=== PATIENT | female | born 1990 | race Caucasian/White ===

== ENCOUNTER 2018-03-19 19:32 | Emergency (ER) | payer OTHER ==
[~2018-03-19] VITALS: Ht 165.1 cm; Wt 63.0 kg
[2018-03-19 19:56] VITALS: BP 137/63; PULSE 77; RESP 16; TEMP 98.1; O2SAT 100
[2018-03-19 20:43] VITALS: BP 129/74; PULSE 74; RESP 18; O2SAT 100
[2018-03-19] MEDS ORDERED: SODIUM CHLORIDE 0.9% FLUSH 10 ML FLUSH IV FLUSH PRN (20:45)
--- NOTE | 2018-03-19 20:49 | PD ---
HPI Chief Complaint: Abdominal Pain Time Seen by Provider: 20:34 Travel History International Travel<30 days: No Contact w/Intl Traveler<30days: No Traveled to known affect area: No History of Present Illness HPI Patient is a 27-year-old female with a history of ruptured ovarian cyst presents emergency department with suprapubic pain, right greater than left. Patient states been going on and off for the past few days but has been more constant today. She states it feels very similar to last ruptured ovarian cyst more intense. Mild nausea without vomiting, does endorse a discharge, she just recently finished her cycle. No dysuria, no diarrhea PFSH Past Medical History Diminished Hearing: No Medical other: Yes (PELVIC PAIN, SCIOLOSIS) Musculoskeletal: Yes (SCOLIOSIS) Respiratory: No Immunizations Current: No Thyroid Disease: No Tetanus Vaccination: Unknown Influenza Vaccination: No ?: Not LMP: 2 WEEKS AGO : 0 Past Surgical History Abdominal Surgery: Yes (LAPOROSCOPY) Oral Surgery: Yes (3 RD MOLARS REMOVED) Tonsillectomy: Yes Social History Alcohol Use: No Tobacco Use: No Substance Use: No Allergies-Medications (Allergen,Severity, Reaction): Coded Allergies: No Known Allergies (Verified Adverse Reaction, Unknown, 03/19/18) Reported Meds & Prescriptions Reported Meds & Active Scripts Active No Active Prescriptions or Reported Medications Review of Systems Except as stated in HPI: all other systems reviewed are Neg Physical Exam Narrative GENERAL: Well-developed well-nourished, appears quite comfortable and in no obvious distress. SKIN: Focused skin assessment warm/dry. HEAD: Atraumatic. Normocephalic. EYES: Pupils equal and round. No scleral icterus. No injection or drainage. ENT: No nasal bleeding or discharge. Mucous membranes pink and moist. NECK: Trachea midline. No JVD. CARDIOVASCULAR: Regular rate and rhythm. No murmur appreciated. RESPIRATORY: No accessory muscle use. Clear to auscultation. Breath sounds equal bilaterally. GASTROINTESTINAL: Abdomen soft, nondistended. Hepatic and splenic margins not palpable. No rebound no percussive tenderness, there is minimal tenderness over the suprapubic area. Psoas and obturator signs negative, no CVA tenderness , [place] sign negative, Rovsing sign negative. GENITOURINARY: Exam performed with female nurse shop teacher present all times, there is no bimanual tenderness no cervical motion tenderness no discharge. No lesions seen. IUD strings are seen. MUSCULOSKELETAL: No obvious deformities. No clubbing. No cyanosis. No edema. NEUROLOGICAL: Awake and alert. No obvious cranial nerve deficits. Motor grossly within normal limits. Normal speech. PSYCHIATRIC: Appropriate mood and affect; insight and judgment normal. Data Data Last Documented VS Vital Signs Date Time Temp Pulse Resp B/P (MAP) Pulse Ox O2 Delivery O2 Flow Rate FiO2 03/20/18 00:29 71 18 108/55 (72) 98 03/19/18 23:40 Room Air 03/19/18 19:56 98.1 Orders Orders Complete Blood Count With Diff (03/19/18 20:44) Comprehensive Metabolic Panel (03/19/18 20:44) Urinalysis - C+S If Indicated (03/19/18 20:44) Iv Access Insert/Monitor (03/19/18 20:44) Ecg Monitoring (03/19/18 20:44) Oximetry (03/19/18 20:44) Sodium Chloride 0.9% Flush (Ns Flush) (03/19/18 20:45) Ed Urine Pregnancytest Poc (03/19/18 20:44) Wet Prep Profile (03/19/18 20:44) Gc And Chlamydia Pcr (03/19/18 20:44) Urine Culture (03/19/18 20:45) Ibuprofen (Motrin) (03/19/18 22:45) Us Pelvis Comp W Doppler (03/19/18 22:38) Ed Discharge Order (03/20/18 00:27) Labs Laboratory Tests Test 03/19/18 20:45 03/19/18 22:10 White Blood Count 9.9 TH/MM3 Red Blood Count 3.95 MIL/MM3 Hemoglobin 10.6 GM/DL Hematocrit 31.8 % Mean Corpuscular Volume 80.7 FL Mean Corpuscular Hemoglobin 26.8 PG Mean Corpuscular Hemoglobin Concent 33.2 % Red Cell Distribution Width 15.7 % Platelet Count 403 TH/MM3 Mean Platelet Volume 9.0 FL Neutrophils (%) (Auto) 68.5 % Lymphocytes (%) (Auto) 19.2 % Monocytes (%) (Auto) 8.3 % Eosinophils (%) (Auto) 3.7 % Basophils (%) (Auto) 0.3 % Neutrophils # (Auto) 6.8 TH/MM3 Lymphocytes # (Auto) 1.9 TH/MM3 Monocytes # (Auto) 0.8 TH/MM3 Eosinophils # (Auto) 0.4 TH/MM3 Basophils # (Auto) 0.0 TH/MM3 CBC Comment DIFF FINAL Differential Comment Urine Color YELLOW Urine Turbidity HAZY Urine pH 7.0 Urine Specific [place] 1.019 Urine Protein NEG mg/dL Urine Glucose (UA) NEG mg/dL Urine Ketones NEG mg/dL Urine Occult Blood NEG Urine Nitrite NEG Urine Bilirubin NEG Urine Urobilinogen LESS THAN 2.0 MG/DL Urine Leukocyte Esterase LARGE Urine RBC 2 /hpf Urine WBC 9 /hpf Urine Squamous Epithelial Cells 5 /hpf Urine Bacteria OCC /hpf Microscopic Urinalysis Comment CULTURE INDICATED Blood Urea Nitrogen 9 MG/DL Creatinine 0.71 MG/DL Random Glucose 78 MG/DL Total Protein 7.9 GM/DL Albumin 4.1 GM/DL Calcium Level 8.8 MG/DL Alkaline Phosphatase 64 U/L Aspartate Amino Transf (AST/SGOT) 17 U/L Alanine Aminotransferase (ALT/SGPT) 25 U/L Total Bilirubin 0.2 MG/DL Sodium Level 137 MEQ/L Potassium Level 3.5 MEQ/L Chloride Level 102 MEQ/L Carbon Dioxide Level 27.2 MEQ/L Anion Gap 8 MEQ/L Estimat Glomerular Filtration Rate 99 ML/MIN Clue Cells (Wet Prep) NONE SEEN Vaginal Trichomonas (Wet Prep) NONE SEEN Vaginal Yeast (Wet Prep) NONE SEEN Chlamydia trachomatis DNA (PCR) DETECTED Neisseria gonorrhoeae DNA (PCR) NOT DETECTED MDM Medical Decision Making Medical Screen Exam Complete: Yes Emergency Medical Condition: Yes Differential Diagnosis Acute on chronic pelvic pain, ruptured ovarian cyst, appendicitis highly unlikely, UTI, BV, CV, STD unlikely. Narrative Course Patient room to the emergency department, overall her exam is quite benign. Her labs are reassuring. I discussed with her that I be happy to order an ultrasound and/or CAT scan for her for her reassurance and workup however I do not think that there is emergent cause to do so. She would like to have an ultrasound done I think this is reasonable. Using shared decision making patient had an ultrasound ordered. Last 24 hours Impressions Pelvis Ultrasound 03/19/18 [id number] Signed Impressions: CONCLUSION: 1. IUD is seen in the body and lower uterine segment of the uterus. 2. Small amount of free fluid in the pelvis. Patient reassured, she is sleeping on reassessment in her abdomen is benign. Discussed follow-up with a primary care physician [employer]Y TEACHER and return to ED criteria. She stable for discharge Diagnosis Primary Impression: Pelvic pain in female Scripts No Active Prescriptions or Reported Meds Disposition: 01 DISCHARGE HOME Condition: Stable Bernard Simmons MD Mar 19, 2018 20:49
[2018-03-19 21:43] LABS: ALBUMIN 4.1 GM/DL (3.4-5.0); AST (GOT) 17 U/L (15-37); BICARBONATE 27.2 MEQ/L (21.0-32.0); BLOOD UREA NITROGEN 9 MG/DL (7-18); CALCIUM 8.8 MG/DL (8.5-10.1); CHLORIDE 102 MEQ/L (98-107); CREATININE 0.71 MG/DL (0.50-1.00); GLOMERULAR FILTRATION RATE 99 ML/MIN (>89); GLUCOSE,RANDOM 78 MG/DL (74-106); SODIUM (NA) 137 MEQ/L (136-145)
[2018-03-19 21:44] LABS: ALT (GPT) 25 U/L (10-53)
[2018-03-19 21:46] LABS: ALKALINE PHOSPHATASE 64 U/L (45-117); TOTAL BILIRUBIN ADULT 0.2 MG/DL (0.2-1.0); TOTAL PROTEIN 7.9 GM/DL (6.4-8.2)
[2018-03-19 21:47] LABS: AUTOMATED NEUTROPHIL # 6.8 TH/MM3 (1.8-7.7); BASOPHIL % 0.3 % (0.0-2.0); EOSINOPHIL # 0.4 TH/MM3 (0-0.4); EOSINOPHIL % 3.7 % (0.0-4.0); HEMATOCRIT 31.8 % (35.0-46.0); HEMOGLOBIN 10.6 GM/DL (11.6-15.3); LYMPH % 19.2 % (9.0-44.0); LYMPHOCYTE # 1.9 TH/MM3 (1.0-4.8); MEAN CELL VOLUME 80.7 FL (80.0-100.0); MEAN CORPUSCULAR HEMOGLOBIN 26.8 PG (27.0-34.0); MEAN CORPUSCULAR HGB CONC 33.2 % (32.0-36.0); MONO % 8.3 % (0.0-8.0); MONOCYTE # 0.8 TH/MM3 (0-0.9); NEUT % 68.5 % (16.0-70.0); PLATELET COUNT 403 TH/MM3 (150-450); RED BLOOD COUNT 3.95 MIL/MM3 (4.00-5.30); RED CELL DISTRIBUTION WIDTH 15.7 % (11.6-17.2); WHITE BLOOD COUNT 9.9 TH/MM3 (4.0-11.0)
[2018-03-19 21:57] LABS: BACTERIA, URINE OCC /hpf; BILIRUBIN, URINE NEG (NEG); BLOOD, URINE NEG (NEG); GLUCOSE,URINE NEG (NEG); KETONE, URINE NEG (NEG); NITRITE,URINE NEG (NEG); SQUAMOUS EPITHELIAL CELL URINE 5 /hpf (0-5); URINE COLOR YELLOW (YELLW/STRAW); URINE LEUKOCYTE ESTERASE LARGE (NEG)
[2018-03-19 22:12] VITALS: BP 128/60; PULSE 71; RESP 18; O2SAT 100
[2018-03-19] MEDS ORDERED: IBUPROFEN 600 MG TAB PO ONE (22:45)
[2018-03-19 23:40] VITALS: BP 105/55; PULSE 67; RESP 18; O2SAT 96
--- NOTE | 2018-03-20 00:23 | RADRPT ---
EXAM DATE: 03/19/2018 11:57 PM EDT AGE/SEX: 27 years / Female INDICATIONS: Pelvic pain. CLINICAL DATA: This is the patient's initial encounter. Patient reports that signs and symptoms have been present for 1 week and indicates a pain score of 5/10. MEDICAL/SURGICAL HISTORY: . Scoliosis. Tonsillectomy. Laparoscopy. COMPARISON: No prior exams available for comparison. MEASUREMENTS: Uterus:__11.0 x 4.5 x 7.4 cm Endometrial Stripe:__6 mm Right Ovary:__ 4.3 x 3.2 x 2.9 cm Left Ovary:__ 2.9 x 1.6 x 2.3 cm FINDINGS: Uterus: The myometrium has homogeneous echotexture without mass. IUD is in place in the uterus seen centrally in the body and lower uterine segment Right Ovary: Within normal limits. Normal color Doppler flow. Left Ovary: Within normal limits. Normal color Doppler flow. Other: Small amount of free fluid in the cul-de-sac. CONCLUSION: 1. IUD is seen in the body and lower uterine segment of the uterus. 2. Small amount of free fluid in the pelvis. Electronically signed by: Gene Martinez MD 03/20/2018 12:22 AM EDT
[2018-03-20 00:29] VITALS: BP 108/55
== END 2018-03-20 00:38 | disposition home or self-care (01) ==
LOC: NEPD 19:32
DX: R10.2 Pelvic and perineal pain (principal); Z97.5 Presence of (intrauterine) contraceptive device
CPT/HCPCS: 76856; 80053; 81001; 84703; 85025; 87086; 87210; 87491; 87591; 93975; 99284